=== PATIENT | female | born 1965 | race Caucasian/White ===

== ENCOUNTER → 2018-12-16 | Day surgery (SDC) | payer OTHER ==
--- NOTE | 2018-12-16 10:40 | OP ---
DATE OF OPERATION: 12/16/2018 PREOPERATIVE DIAGNOSIS: Abnormal left mammography. POSTOPERATIVE DIAGNOSIS: Abnormal left mammography. PROCEDURE: Left breast stereotactic needle biopsy with clip. SURGEON: Julia Savage MD ANESTHESIA: Local. COMPLICATIONS: None. This was a sterile procedure. INDICATIONS: Patient presented with a screening mammogram that noted a new cluster of microcalcifications in the outer, slightly lower left breast. My recommendation was needle biopsy. The procedure was discussed with her including the need for a clip. PROCEDURE IN DETAIL: Patient was brought to [facility] in [place], laid prone on the Lorad table. Using the lateral approach, the calcifications in the lower outer left breast were identified. A sterile prep was obtained. A target was chosen. There was a positive stroke margin. Using Betadine and 1% lidocaine, a 9-gauge FD9 Groupos device was used to take several cores from this area. Cores showed calcification within them. These were handled using the calcification protocol. A clip was deployed in the area. Hemostasis was assured with direct pressure. The incision was closed with Steri-Strips. She tolerated the procedure well and left the breast imaging center in good condition. JULIA SAVAGE M.D. [id number]
--- NOTE | 2018-12-18 12:09 | PATH ---
Surgical Pathology Report Patient Name: SHARATH ALARCON [facility]. Rec. #: [id number] /Age/Gender: 1965 (Age: 53) / F Account: [id number] Location: [facility] Taken: 12/16/2018 Received: 12/16/2018 Reported: 12/18/2018 Physicians: Julia Bragg M.D. Specimen(s) Received A: LEFT BREAST SPECIMEN-WITH CALCIFICATIONS B: LEFT BREAST SPECIMEN-WITHOUT CALCIFICATIONS Clinical History Mammographic findings: Microcalcifications Final Diagnosis A. BREAST, LEFT, WITH CALCIFICATIONS, STEREOTACTIC BIOPSY: BENIGN BREAST TISSUE SHOWING FOCAL, USUAL DUCTAL HYPERPLASIA (UDH AND SECRETORY CHANGE WITH FEW ASSOCIATED CALCIFICATIONS. CALCIFICATIONS ARE ALSO PRESENT IN ASSOCIATION WITH BLOOD VESSEL PRITCHARD. B. BREAST, LEFT, WITHOUT CALCIFICATIONS, STEREOTACTIC BIOPSY: BENIGN BREAST TISSUE SHOWING SCLEROSING ADENOSIS WITH RARE ASSOCIATED CALCIFICATIONS. Electronically Signed Johanny Tracey M.D. Gross Description A. Received in formalin, labeled "left breast with calcifications" is a 1.7 x 1.5 x 0.2 cm aggregate of cores of light ulrich and yellow-ulrich tissue. Entirely submitted in one cassette. B. Received in formalin, labeled "left breast without calcifications" is a 2.2 x 1.5 x 0.2 cm aggregate of light ulrich and yellow-ulrich tissue. Entirely submitted in one cassette. AE/12/16/2018 ebram/12/16/2018
== END | disposition home or self-care (01) ==
LOC: FMAMMOTONE 07:39
PROVIDERS: ATTEND Surgery
PROC: 0HBU3ZX Excision of Left Breast, Percutaneous Approach, Diagnostic (ICD-10-PCS; principal; 2018-12-16)
DX: N60.82 Other benign mammary dysplasias of left breast (principal); N60.22 Fibroadenosis of left breast; N64.89 Other specified disorders of breast; R92.8 Other abnormal and inconclusive findings on diagnostic imaging of breast
CPT/HCPCS: 19081; 87899; 88305-TC; A4648